=== PATIENT | male | born 2005 | race Hispanic/Latino ===

== ENCOUNTER 2023-11-10 23:39 | Emergency (ER) | payer OTHER ==
[2023-11-11] MEDS ORDERED: Boostrix 0.5 ML (Tdap) VIAL (>/=7 yrs of age) ONE (00:11)
== END 2023-11-11 04:35 ==
LOC: ERS 23:39
DX: S91.311A Laceration without foreign body, right foot, initial encounter (principal); Z23 Encounter for immunization; W06.XXXA Fall from bed, initial encounter
CPT/HCPCS: 12001; 90471; 90715

== ENCOUNTER 2024-03-12 00:47 | Emergency (ER) | payer OTHER ==
[2024-03-12] MEDS ORDERED: Dicyclomine 20 MG/2 ML VIAL ONE (01:47)
== END 2024-03-12 02:16 ==
LOC: ERS 00:47
DX: R25.2 Cramp and spasm (principal)
CPT/HCPCS: 96372; 99283